=== PATIENT | female | born 1975 | race Caucasian/White ===

== ENCOUNTER 2018-02-25 16:51 | Emergency (ER) | payer BC ==
[~2018-02-25] VITALS: Ht 162.6 cm; Wt 55.0 kg
[2018-02-25 16:52] VITALS: BP 133/63
== END 2018-02-25 17:32 | disposition left against medical advice (07) ==
LOC: ER 16:51
DX: Z53.21 Procedure and treatment not carried out due to patient leaving prior to being seen by health care provider (principal)

== ENCOUNTER 2018-04-09 00:34 | Emergency (ER) | payer BC ==
[~2018-04-09] VITALS: Ht 154.9 cm; Wt 65.0 kg
[2018-04-09] MEDS ORDERED: ALBUTEROL (0.083%) 2.5MG/3ML NEB HHN ONE (03:00)
[2018-04-09] MEDS ORDERED: DEXAMETHASONE 10 MG/ML VIAL IM ONE (03:00)
[2018-04-09 05:36] VITALS: BP 110/60
== END 2018-04-09 05:39 | disposition home or self-care (01) ==
LOC: ER 04:03
DX: J40 Bronchitis, not specified as acute or chronic (principal); Z87.891 Personal history of nicotine dependence
CPT/HCPCS: 71045; 81025; 96372; 99283; J1100

== ENCOUNTER 2021-09-23 15:30 | Inpatient (IN) | payer BC, MEDICAID ==
[~2021-09-23] VITALS: Ht 154.9 cm; Wt 89.4 kg
[2021-09-23] MEDS ORDERED: CEFTRIAXONE 1 G PREMIX 50 ML IV ONE (19:30)
[2021-09-23] MEDS ORDERED: CEFTRIAXONE 2 G PREMIX 50 ML IV ONE (19:45)
[2021-09-23] MEDS ORDERED: LIDOCAINE HCL 1% 20ML VIAL (Pyxis) INJ INFIL ONE (19:45)
[2021-09-23 20:35] LABS: BASOPHILS % 1.2 % (0.0-2.0); EOSINOPHILS % 7.9 % (0.0-5.0); HEMATOCRIT. 35.7 % (36.0-48.0); HEMOGLOBIN. 12.1 g/dL (12.0-16.0); MEAN CORPUSCULAR HEMOGLOBIN 31.8 pg (28.0-32.0); MEAN CORPUSCULAR VOLUME 93.7 fL (81.0-99.0); MEAN PLATELET VOLUME 9.4 fl (7.4-10.4); NEUTROPHILS % 37.9 % (40.0-76.0); PLATELET 239 x1000/uL (130-400); RED BLOOD CELL COUNT 3.82 mill/uL (4.2-5.4); RED CELL DISTRIBUTION WIDTH 13.5 % (11.6-14.6)
[2021-09-23 20:40] LABS: CHLORIDE 105 mEq/L (98-107)
[2021-09-23] MEDS ORDERED: CEFTRIAXONE 2 G in DEXTROSE 5% WATER 50 ML IV SCH (20:45)
[2021-09-23] MEDS: VANCOMYCIN 1G PREMIX 200 ML IV SCH (20:48)
[2021-09-23] MEDS ORDERED: DIPHENHYDRAMINE 50MG/ML VIAL IV ONE (22:00)
[2021-09-23] MEDS: PIPERACILLIN/TAZOBACTAM 3.375 G in DEXTROSE 5% WATER 50 ML IV SCH (22:30)
[2021-09-24] MEDS: MORPHINE SULFATE 2 MG/ML CPJ (NOT FOR IM USE) IV SCH ×2 (06:45→10:00)
[2021-09-24 08:00] VITALS: BP 125/54
[2021-09-24] MEDS: VANCOMYCIN 1G PREMIX 200 ML IV SCH (08:03)
[2021-09-24 08:20] VITALS: BP 117/76
[2021-09-24] MEDS ORDERED: ONDANSETRON HCL 4MG/2ML INJ IV PRN (11:00)
[2021-09-24] MEDS ORDERED: NA PHOS,M-B/NA PHOS,DI-BA ENEMA 118ML PR PRN (11:00)
[2021-09-24] MEDS ORDERED: ACETAMINOPHEN 650MG SUPP PR PRN (11:00)
[2021-09-24] MEDS ORDERED: MAGNESIUM/ALUMINUM HYDROXIDE/SIMETHICONE 30ML UDC PO PRN (11:00)
[2021-09-24] MEDS ORDERED: CLONIDINE 0.1MG TABLET PO PRN (11:00)
[2021-09-24] MEDS ORDERED: GUAIFENESIN 200MG/10ML SUGAR FREE UDC PO PRN (11:00)
[2021-09-24] MEDS ORDERED: DIPHENHYDRAMINE 50MG/ML VIAL IV PRN (11:00)
[2021-09-24] MEDS ORDERED: MORPHINE SULFATE 2 MG/ML CPJ (NOT FOR IM USE) IV PRN (11:00)
[2021-09-24] MEDS ORDERED: ACETAMINOPHEN 325MG TABLET PO PRN (11:00)
[2021-09-24] MEDS ORDERED: IPRATROPIUM/ALBUTEROL 0.5-3(2.5)MG/3ML NEB NEB PRN (11:00)
[2021-09-24] MEDS ORDERED: LORAZEPAM 0.5MG TABLET PO PRN (11:00)
[2021-09-24] MEDS ORDERED: DOCUSATE SODIUM 100MG CAPSULE PO PRN (11:00)
[2021-09-24] MEDS ORDERED: HYDROCODONE/ACETAMINOPHEN 5/325MG TABLET PO PRN (11:00)
[2021-09-24] MEDS ORDERED: NALOXONE HCL 0.4MG/ML VIAL IV PRN (11:15)
[2021-09-24 12:00] VITALS: BP 132/61
[2021-09-24 13:25] LABS: BASOPHILS % 0.6 % (0.0-2.0); EOSINOPHILS % 10.6 % (0.0-5.0); LYMPHOCYTES % 43.9 % (20.0-50.0); MEAN CORPUSCULAR VOLUME 93.4 fL (81.0-99.0); MEAN PLATELET VOLUME 9.7 fl (7.4-10.4); MONOCYTES % 7.1 % (2.0-8.0); NEUTROPHILS % 37.8 % (40.0-76.0); PLATELET 209 x1000/uL (130-400); RED BLOOD CELL COUNT 3.86 mill/uL (4.2-5.4); RED CELL DISTRIBUTION WIDTH 13.8 % (11.6-14.6)
[2021-09-24 13:37] LABS: CHLORIDE 106 mEq/L (98-107)
[2021-09-24 13:46] LABS: HCG SCREEN NEGATIVE
[2021-09-24 13:55] LABS: PROTHROMBIN TIME 10.6 sec (9.6-11.0)
[2021-09-24 16:00] VITALS: BP 107/59
[2021-09-24] MEDS: PIPERACILLIN/TAZOBACTAM 3.375 G in DEXTROSE 5% WATER 50 ML IV SCH (16:44)
[2021-09-24 20:00] VITALS: BP 113/54
[2021-09-24] MEDS: FAMOTIDINE 20MG TABLET PO SCH (23:29)
[2021-09-25] VITALS: BP 108/62
[2021-09-25] MEDS: PIPERACILLIN/TAZOBACTAM 3.375 G in DEXTROSE 5% WATER 50 ML IV SCH ×3 (05:53→22:18)
[2021-09-25] MEDS ORDERED: SODIUM BICARBONATE 4% (2.4MEQ) 5ML VIAL IV ONE (07:46)
[2021-09-25] MEDS ORDERED: LIDOCAINE HCL/PF 1% 10 MG/ML 5ML VIAL ONE (07:46)
[2021-09-25 08:00] VITALS: BP 124/66
[2021-09-25 08:33] LABS: BASOPHILS % 1.2 % (0.0-2.0); EOSINOPHILS % 9.4 % (0.0-5.0); HEMATOCRIT. 36.5 % (36.0-48.0); HEMOGLOBIN. 12.3 g/dL (12.0-16.0); LYMPHOCYTES % 41.7 % (20.0-50.0); MEAN CORPUSCULAR HEMOGLOBIN 31.5 pg (28.0-32.0); MEAN CORPUSCULAR VOLUME 93.6 fL (81.0-99.0); MEAN PLATELET VOLUME 9.8 fl (7.4-10.4); MONOCYTES % 7.8 % (2.0-8.0); NEUTROPHILS % 39.9 % (40.0-76.0); PLATELET 227 x1000/uL (130-400); RED CELL DISTRIBUTION WIDTH 13.6 % (11.6-14.6)
[2021-09-25 08:45] LABS: CHLORIDE 105 mEq/L (98-107)
[2021-09-25 12:00] VITALS: BP 133/65
[2021-09-25 16:00] VITALS: BP 111/60
[2021-09-25 20:00] VITALS: BP 132/52
[2021-09-25] MEDS: FAMOTIDINE 20MG TABLET PO SCH (22:18)
[2021-09-26] VITALS: BP 130/60
[2021-09-26 04:00] VITALS: BP 130/64
[2021-09-26] MEDS: PIPERACILLIN/TAZOBACTAM 3.375 G in DEXTROSE 5% WATER 50 ML IV SCH ×2 (06:20→14:27)
[2021-09-26 07:08] LABS: BASOPHILS % 1.1 % (0.0-2.0); EOSINOPHILS % 6.7 % (0.0-5.0); HEMATOCRIT. 36.1 % (36.0-48.0); HEMOGLOBIN. 12.4 g/dL (12.0-16.0); LYMPHOCYTES % 40.7 % (20.0-50.0); MEAN CORPUSCULAR HEMOGLOBIN 32.1 pg (28.0-32.0); MEAN CORPUSCULAR VOLUME 93.4 fL (81.0-99.0); MEAN PLATELET VOLUME 10.1 fl (7.4-10.4); MONOCYTES % 8.9 % (2.0-8.0); NEUTROPHILS % 42.6 % (40.0-76.0); PLATELET 223 x1000/uL (130-400); RED BLOOD CELL COUNT 3.87 mill/uL (4.2-5.4); RED CELL DISTRIBUTION WIDTH 13.7 % (11.6-14.6)
[2021-09-26 07:34] LABS: CHLORIDE 107 mEq/L (98-107)
[2021-09-26 07:55] VITALS: BP 113/62
[2021-09-26 11:50] VITALS: BP 127/64
[2021-09-26 16:23] VITALS: BP 110/64
[2021-09-26 17:57] VITALS: BP 110/64
== END 2021-09-26 19:06 | disposition home or self-care (01) | DRG 554 ==
LOC: ER 15:30 → MICUSO 22:45 → 6EST 09-24 07:29
PROVIDERS: ADMIT Internal Medicine; ATTEND Internal Medicine
PROC: 0S9D3ZZ Drainage of Left Knee Joint, Percutaneous Approach (ICD-10-PCS; principal; 2021-09-25)
DX: M17.12 Unilateral primary osteoarthritis, left knee (principal); M25.462 Effusion, left knee; E66.9 Obesity, unspecified; Y90.9 Presence of alcohol in blood, level not specified; R26.89 Other abnormalities of gait and mobility; Z20.822 Contact with and (suspected) exposure to COVID-19; M23.204 Derangement of unspecified medial meniscus due to old tear or injury, left knee; Z72.89 Other problems related to lifestyle; Z68.37 Body mass index [BMI] 37.0-37.9, adult; Z88.1 Allergy status to other antibiotic agents
CPT/HCPCS: 20611; 36415; 73562; 73721; 80048; 80053; 82040; 83615; 84145; 84443; 84478; 84550; 84703; 85025; 85651; 86141; 87426; 89060; 93306; 93970; 97162; 99285; J0696; J1200; J2270; J2543; J3370; J3490; J7060

== ENCOUNTER 2024-05-29 11:12 | Emergency (ER) | payer BC ==
[~2024-05-29] VITALS: Ht 154.9 cm; Wt 91.0 kg
[2024-05-29 11:26] VITALS: O2SAT 99
[2024-05-29] MEDS ORDERED: IBUP-2029 MT (15:17)
[2024-05-29 15:31] VITALS: BP 140/60; PULSE 74; RESP 18; TEMP 36.7; O2SAT 98
== END 2024-05-29 15:33 | disposition home or self-care (01) ==
LOC: ER 11:12
DX: S83.91XA Sprain of unspecified site of right knee, initial encounter (principal); Z88.1 Allergy status to other antibiotic agents; X58.XXXA Exposure to other specified factors, initial encounter; Y93.89 Activity, other specified; Y92.89 Other specified places as the place of occurrence of the external cause; Y99.8 Other external cause status
CPT/HCPCS: 73562; 93971; 99284